=== PATIENT | male | born 1950 | race Caucasian/White ===

== ENCOUNTER 2018-07-01 01:15 | Inpatient (IN) | payer OTHER ==
[~2018-07-01] VITALS: Ht 177.8 cm; Wt 88.7 kg
[2018-07-01 01:20] VITALS: Ht 177.8 cm; Wt 88.7 kg
[2018-07-01 02:20] LABS: BASOPHIL % 1.1 % (0-2); RED CELL DISTRIBUTION WIDTH 13.5 % (11.5-14.5)
[2018-07-01 02:26] LABS: PLATELET COUNT 457 x10^3mcL (130-400)
[2018-07-01 02:33] LABS: CALCIUM 9.5 mg/dL (8.5-10.1); CARBON DIOXIDE 28.6 mmol/L (21-32); CHLORIDE SERUM 100 mmol/L (98-107); CREATININE SERUM 1.1 mg/dL (0.7-1.3); GFR1 > 60 mL/min; GLUCOSE SERUM 135 mg/dL (74-106); POTASSIUM SERUM 4.3 mmol/L (3.5-5.1); SODIUM SERUM 137 mmol/L (136-145)
[2018-07-01 02:38] LABS: ALBUMIN 3.6 g/dL (3.4-5.0); ALKALINE PHOSPHATASE 89 U/L (46-116); ALT/SGPT 14 U/L (16-63); AMYLASE 43 U/L (25-115); AST/SGOT 22 U/L (15-37); BILIRUBIN TOTAL 0.46 mg/dL (0.20-1.00); LIPASE 96 IU/L (73-393); TOTAL PROTEIN, SERUM 7.9 g/dL (6.4-8.2)
[2018-07-01 03:15] LABS: MAGNESIUM 2.3 mg/dL (1.8-2.4); PHOSPHOROUS 3.7 mg/dL (2.5-4.9)
[2018-07-01 03:21] LABS: T3 TOTAL 1.25 ng/mL
[2018-07-01 03:33] LABS: FREE T4 0.94 ng/dL (0.76-1.46); FREE THYROXINE INDEX 2.4 ug/dL (1.4-4.5); T4(THYROXINE) 7.4 ug/dL (4.7-13.3)
[2018-07-01 03:37] VITALS: BP 144/91
[2018-07-01 03:51] LABS: CHOLESTEROL/HDL RATIO 3.9
[2018-07-01 04:19] LABS: microscopic required? NO
[2018-07-01 04:34] LABS: UA SPECIFIC GRAVITY 1.015 (1.005-1.035); urine erythrocyte NEGATIVE (NEGATIVE)
[2018-07-01 04:55] LABS: AMPHETAMINE QUAL UR POSITIVE (See below)
[2018-07-01 06:57] VITALS: BP 149/99
[2018-07-01 10:07] VITALS: BP 137/97
[2018-07-01 17:10] VITALS: BP 153/93
[2018-07-01 20:45] VITALS: BP 140/93
[2018-07-02 05:33] VITALS: BP 136/86
[2018-07-02 06:48] LABS: BASOPHIL % 0.1 % (0-2); PLATELET COUNT 376 x10^3mcL (130-400); RED CELL DISTRIBUTION WIDTH 13.7 % (11.5-14.5)
[2018-07-02 07:17] LABS: CALCIUM 8.5 mg/dL (8.5-10.1); CARBON DIOXIDE 25.4 mmol/L (21-32); CHLORIDE SERUM 104 mmol/L (98-107); CREATININE SERUM 0.9 mg/dL (0.7-1.3); GFR1 > 60 mL/min; GLUCOSE SERUM 96 mg/dL (74-106); MAGNESIUM 2.2 mg/dL (1.8-2.4); PHOSPHOROUS 2.4 mg/dL (2.5-4.9); SODIUM SERUM 137 mmol/L (136-145)
[2018-07-02 10:01] VITALS: BP 109/75
[2018-07-02 16:42] VITALS: BP 109/75
[2018-07-02 16:51] VITALS: BP 126/69
[2018-07-02] MEDS ORDERED: LIPI20 PO (17:29)
== END 2018-07-02 17:08 | disposition home or self-care (01) | DRG 390 ==
LOC: ED 01:15 → MU 02:39
PROVIDERS: Emergency Medicine; Internal Medicine
DX: K56.699 Other intestinal obstruction unspecified as to partial versus complete obstruction (principal); F12.10 Cannabis abuse, uncomplicated; E78.5 Hyperlipidemia, unspecified; D47.3 Essential (hemorrhagic) thrombocythemia; Z68.28 Body mass index [BMI] 28.0-28.9, adult; M19.90 Unspecified osteoarthritis, unspecified site
CPT/HCPCS: 83880; 84439; A9698; J1885; J2270; J2405; J7030; Q0092; Q9967